=== PATIENT | female | born 1990 | race Caucasian/White ===

== ENCOUNTER → 2020-03-14 | Outpatient (CLI) | payer OTHER ==
--- NOTE | 2020-03-15 09:01 | US ---
EXAMINATION TYPE: Ultrasound OB <= 14 week fetus DATE OF EXAM: 03/14/2020 4:28 PM COMPARISON: NONE CLINICAL HISTORY: 29-year-old female Z36 CONFIRM DATES. EXAM PERFORMED: Transabdominal (TA) FINDINGS: EXAM MEASUREMENTS: GESTATIONAL AGE / DATING Physician Established: Not yet established Dates by LMP: LMP unknown Dates by First Scan: No previous this is first scan Dates by Current Scan for: (9 weeks/5 days) EDC: 10/12/2020 MATERNAL ANATOMY Uterus: 10.7 x 6.1 x 6.0 cm Right Ovary: 3.5 x 3.4 x 1.7 cm Left Ovary: 2.6 x 1.9 x 2.7 cm Post CDS / Adnexa: wnl Presence of free fluid: wnl Presence of corpus luteal cyst: Yes left Presence of subchorionic bleed: no GESTATION / SURVEY CRL: 27.7 mm (9 weeks/5 days) Yolk Sac (normal less than 6mm): 4 mm Heart Rate: 160 bpm Rhythm: Normal IUP: Viable IUP Beta HcG (if available): Not available at this time IMPRESSION: 1. Single live intrauterine with gestational age of 9 weeks 5 days by LMP. 2. A corpus luteum on the left. 3. Complete survey recommended at 18-20 weeks.
== END | disposition home or self-care (01) ==
LOC: RADUSWWP 16:07
PROVIDERS: ATTEND Obstetrics & Gynecology
DX: Z36.9 Encounter for antenatal screening, unspecified (principal); Z3A.09 9 weeks gestation of pregnancy
CPT/HCPCS: 76801

== ENCOUNTER → 2020-03-29 | Outpatient (CLI) | payer OTHER ==
[2020-03-29 11:52] LABS: HCT 34.2 % (34.0-46.0); HGB 11.2 gm/dL (11.4-16.0); MCH 26.5 pg (25.0-35.0); MCHC 32.6 g/dL (31.0-37.0); MCV 81.2 fL (80.0-100.0); Mean Platelet Volume 7.1; Platelet Count 326 k/uL (150-450); RBC 4.21 m/uL (3.80-5.40); RDW 13.7 % (11.5-15.5); WBC 9.8 k/uL (3.8-10.6)
[2020-03-29 15:15] LABS: African American GFR (CKD) 140.8 (60.0-200.0); Non-African American GFR(CKD) 121.5 (60.0-200.0)
[2020-03-29 15:49] LABS: Hepatitis B Surface Antigen Non-Reactive (Non-Reactive)
== END | disposition home or self-care (01) ==
LOC: LABWHC1 10:41
PROVIDERS: ATTEND Obstetrics & Gynecology
DX: Z34.81 Encounter for supervision of other normal pregnancy, first trimester (principal)
CPT/HCPCS: 36415; 82565; 82947; 85027; 86762; 86777; 86778; 86780; 86850; 86900; 86901; 87340

== ENCOUNTER → 2020-06-20 | Outpatient (CLI) | payer OTHER | END | disposition home or self-care (01) | LOC: LABWHC1 15:01 | PROVIDERS: ATTEND Family Medicine | DX: Z03.818 Encounter for observation for suspected exposure to other biological agents ruled out (principal) | CPT/HCPCS: U0003; C9803 ==

== ENCOUNTER 2020-10-01 06:00 | Inpatient (IN) | payer OTHER ==
[2020-10-01] MEDS ORDERED: LIDOCAINE 0.5% (PF) 5 MG/ML (50 ML SDV) SQ PRN (06:34)
[2020-10-01] MEDS ORDERED: TERBUTALINE 1 MG/ML VIAL SQ PRN (06:34)
[2020-10-01] MEDS ORDERED: CARBOPROST TROMETHAMINE 250 MCG/ML 1 ML AMP IM PRN (06:34)
[2020-10-01] MEDS ORDERED: METHYLERGONOVINE 0.2 MG/ML 1 ML AMP IM PRN (06:34)
[2020-10-01] MEDS ORDERED: OXYTOCIN 10 UNIT/ML 1 ML VIAL IM PRN (06:34)
[2020-10-01] MEDS ORDERED: OXYTOCIN 30 UNITS/500 ML NS 30 UNIT in SALINE 1 500ML.BAG IV SCH ×2 (06:45→13:45)
[2020-10-01] MEDS: LACTATED RINGERS 1,000 ML IV SCH ×2 (07:02→10:32)
[2020-10-01 07:22] LABS: Basophils % (A) 0 %; Eosinophils # (A) 0.1 k/uL (0-0.7); Eosinophils % (A) 1 %; HCT 34.4 % (34.0-46.0); HGB 11.5 gm/dL (11.4-16.0); Lymphocytes # (A) 2.3 k/uL (1.0-4.8); Lymphocytes % (A) 20 %; MCH 25.6 pg (25.0-35.0); MCHC 33.5 g/dL (31.0-37.0); MCV 76.4 fL (80.0-100.0); Microcytosis Slight; Monocytes # (A) 0.5 k/uL (0-1.0); Monocytes % (A) 4 %; Neutrophils # (A) 8.9 k/uL (1.3-7.7); Neutrophils % (A) 75 %; Platelet Count 367 k/uL (150-450); RDW 15.6 % (11.5-15.5); WBC 11.9 k/uL (3.8-10.6)
[2020-10-01] MEDS ORDERED: fentaNYL (PF) 50 MCG/ML 5 ML AMP ONE (09:59)
[2020-10-01] MEDS ORDERED: ROPIVACAINE 5MG/ML 20ML VIAL ONE (09:59)
[2020-10-01] MEDS ORDERED: ePHEDrine SULFATE/0.9% NACL/PF 50 MG/5 ML SYRINGE IV ONE (09:59)
[2020-10-01] MEDS ORDERED: SODIUM CHLORIDE 0.9% 100 ML BAG ONE (09:59)
[2020-10-01] MEDS ORDERED: diphenhydrAMINE 50 MG/ML 1 ML VIAL IVP PRN ×2 (13:41)
[2020-10-01] MEDS ORDERED: diphenhydrAMINE 25 MG CAP PO PRN (13:41)
[2020-10-01] MEDS ORDERED: diphenhydrAMINE 50 MG CAP PO PRN (13:41)
[2020-10-01] MEDS ORDERED: HYDROCORTISONE 2.5% RECTAL CREAM 30 GM TUBE RECTAL PRN (13:41)
[2020-10-01] MEDS ORDERED: ACETAMINOPHEN TAB 325 MG TAB PO PRN (13:41)
[2020-10-01] MEDS ORDERED: BENZOCAINE/MENTHOL SPRAY 1 GM/SPRAY AEROSOL TOPICAL PRN (13:41)
[2020-10-01] MEDS ORDERED: LANOLIN CREAM 5 GM TUBE TOPICAL PRN (13:41)
[2020-10-01] MEDS ORDERED: SIMETHICONE 80 MG CHEWABLE PO PRN (13:41)
[2020-10-01] MEDS ORDERED: ZOLPIDEM 5 MG TAB PO PRN (13:41)
[2020-10-01] MEDS: IBUPROFEN 600 MG TAB PO PRN ×2 (15:35→22:06)
--- NOTE | 2020-10-01 17:06 | P.HPOB ---
History of Present Illness H&P Date: 10/01/20 Chief Complaint: Induction of labor, gestational hypertension 30-year-old presents at 38 weeks and 4 days for induction of labor. Her blood pressure has been elevated a few times in my office, second time yesterday. She was diagnosed with a gestational hypertension and scheduled for induction. Her cervix is 3cm dilated, 70% effaced, and 0 station. She is rick irregularly. heart tones 135 with moderate variability and reactive. Review of Systems All systems: negative Constitutional: Denies chills, Denies fever Eyes: denies blurred vision, denies pain Ears, nose, mouth and throat: Denies headache, Denies sore throat Cardiovascular: Denies chest pain, Denies shortness of breath Respiratory: Denies cough Gastrointestinal: Denies abdominal pain, Denies diarrhea, Denies nausea, Denies vomiting Genitourinary: Denies dysuria, Denies hematuria Musculoskeletal: Denies myalgias Integumentary: Denies pruritus, Denies rash Neurological: Denies numbness, Denies weakness Psychiatric: Denies anxiety, Denies depression Endocrine: Denies fatigue, Denies weight change Past Medical History Past Medical History: No Reported History Additional Past Medical History / Comment(s): Obstetric history: First was a vaginal delivery. This is her second and she has had care with me since 10 weeks. A neg, abs neg, Rub nonimmune, RPR NR, Hep B neg, normal anatomy US. She had a rhogam injection at 28 weeks. GBS neg. she was diagnosed with gestational hypertension. History of Any Multi-Drug Resistant Organisms: None Reported Past Surgical History: Cholecystectomy Additional Past Surgical History / Comment(s): cholecystectomy 2012 Past Anesthesia/Blood Transfusion Reactions: No Reported Reaction Past Psychological History: Depression Smoking Status: Current every day smoker Past Alcohol Use History: None Reported Past Drug Use History: None Reported - Past Family History Father Family Medical History: Cancer Mother Family Medical History: Cancer Medications and Allergies Home Medications Medication Instructions Recorded Confirmed Type Citalopram Hydrobromide 1 tab PO DAILY 10/01/20 10/01/20 History [Citalopram HBr] Pnv No.95/Ferrous Fum/Folic AC 1 tab PO DAILY 10/01/20 10/01/20 History [ Multivitamin Tablet] Allergies Allergy/AdvReac Type Severity Reaction Status Date / Time tramadol HCl [From [facility]] Allergy Anaphylaxis Verified 09/07/14 06:23 Exam Osteopathic Statement: *. No significant issues noted on an osteopathic structural exam other than those noted in the History and Physical/Consult. Vital Signs Temp Pulse Resp BP Pulse Ox 10/01/20 16:00 96.9 F L 55 L 16 131/62 10/01/20 15:14 60 16 116/62 10/01/20 14:44 65 16 121/64 10/01/20 14:14 55 L 16 129/68 10/01/20 13:59 66 16 129/63 10/01/20 13:44 62 16 135/63 10/01/20 13:23 80 16 133/69 10/01/20 13:14 84 16 132/66 10/01/20 06:30 97.3 F L 83 16 128/76 99 Intake and Output 10/01/20 10/01/20 10/01/20 06:59 14:59 22:59 Intake Total 400 Balance 400 Intake: Oral 400 Other: Weight 107.048 kg Heart: Regular rate and rhythm Lungs: Clear to auscultation bilaterally Abdomen: Soft, nontender Extremities: Negative Homans sign Results Result Diagrams: 10/01/20 07:00 Abnormal Lab Results - Last 24 Hours (Table) 10/01/20 Range/Units 07:00 WBC 11.9 H (3.8-10.6) k/uL MCV 76.4 L (80.0-100.0) fL RDW 15.6 H (11.5-15.5) % Neutrophils # 8.9 H (1.3-7.7) k/uL Assessment and Plan (1) Encounter for induction of labor Current Visit: Yes Status: Acute Code(s): Z34.90 - ENCNTR FOR SUPRVSN OF NORMAL , UNSP, UNSP TRIMESTER SNOMED Code(s): 849181824 (2) Gestational hypertension Current Visit: Yes Status: Acute Code(s): O13.9 - GESTATIONAL HTN W/O SIGNIFICANT PROTEINURIA, UNSP TRIMESTER SNOMED Code(s): 543188137 Plan: 1. Admit to family place 2. Induction of labor with amniotomy and Pitocin 3. Anticipate normal vaginal delivery
--- NOTE | 2020-10-01 17:07 | P.PROBDLV ---
Vaginal Delivery Note - . Vaginal Delivery Note: 30-year-old presents at 38 weeks and 4 days for induction of labor. Her blood pressure has been elevated a few times in my office, second time yesterday. She was diagnosed with a gestational hypertension and scheduled for induction. Her cervix is 3cm dilated, 70% effaced, and 0 station. She is rick irregularly. heart tones 135 with moderate variability and reactive. Pitocin was started. Amniotomy performed at 8:20 AM and clear fluid noted. When she was uncomfortable she did get an epidural. Her cervix was completely dilated at 12:40 PM. She pushed, and a viable female over intact perineum under epidural anesthesia at 12:52 PM. Head delivered OA, nuchal cord 1 easily reduced, anterior shoulder delivered gentle guidance. Posterior shoulder and rest of body. Nose and mouth bulb suctioned, cord clamped and cut, placed on mother's abdomen. Apgars 8, 9, weight 6 pounds 2.8 ounces. Placenta delivered spontaneously, intact with three-vessel cord at 12:54 PM. Vagina, cervix, perineum inspected. Her surgery midline laceration was repaired with 0 Vicryl. Estimated blood loss 150 mL. Mother and baby in stable condition.
[2020-10-01] MEDS: SENNOSIDES-DOCUSATE SODIUM 1 EACH TAB PO SCH ×2 (20:59→22:05)
[2020-10-02] MEDS: SENNOSIDES-DOCUSATE SODIUM 1 EACH TAB PO SCH (07:53)
[2020-10-02] MEDS: IBUPROFEN 600 MG TAB PO PRN (07:54)
[2020-10-02 07:58] LABS: Basophils # (A) 0.1 k/uL (0-0.2); Basophils % (A) 0 %; Eosinophils # (A) 0.2 k/uL (0-0.7); Eosinophils % (A) 2 %; HCT 31.4 % (34.0-46.0); HGB 10.7 gm/dL (11.4-16.0); Lymphocytes # (A) 2.8 k/uL (1.0-4.8); Lymphocytes % (A) 26 %; MCH 26.4 pg (25.0-35.0); MCHC 34.1 g/dL (31.0-37.0); MCV 77.3 fL (80.0-100.0); Mean Platelet Volume 7.1; Microcytosis Slight; Monocytes # (A) 0.5 k/uL (0-1.0); Monocytes % (A) 4 %; Neutrophils # (A) 7.3 k/uL (1.3-7.7); Neutrophils % (A) 67 %; Platelet Count 298 k/uL (150-450); RBC 4.06 m/uL (3.80-5.40); RDW 15.5 % (11.5-15.5)
[2020-10-02 08:00] VITALS: RESP 20
[2020-10-02] MEDS ORDERED: buPROPion 75 MG TAB PO SCH (09:15)
--- NOTE | 2020-10-02 12:38 | P.DS ---
Providers Date of admission: 10/01/20 06:00 Expected date of discharge: 10/02/20 Attending physician: Erika Mancini Primary care physician: Stated None - Discharge Diagnosis(es) (1) Encounter for induction of labor Current Visit: Yes Status: Resolved (2) Gestational hypertension Current Visit: Yes Status: Resolved (3) Normal vaginal delivery Current Visit: No Status: Acute Hospital Course: Patient presented for induction of labor due to gestational hypertension. She underwent a normal vaginal delivery. course was uncomplicated. Denies headache, nausea, vomiting, chest pain, shortness of breath or any calf pain. She'll be discharged home day #1 in stable condition to follow-up with me in 6 weeks. Plan - Discharge Summary New Discharge Prescriptions: New Ibuprofen [Motrin] 600 mg PO Q6HR PRN #30 tab PRN Reason: Mild Pain Or Fever >= 100.5 No Action Pnv No.95/Ferrous Fum/Folic AC [ Multivitamin Tablet] 1 tab PO DAILY Citalopram Hydrobromide [Citalopram HBr] 1 tab PO DAILY Discharge Medication List Citalopram Hydrobromide [Citalopram HBr] 1 tab PO DAILY 10/01/20 [History] Pnv No.95/Ferrous Fum/Folic AC [ Multivitamin Tablet] 1 tab PO DAILY 10/01/20 [History] Ibuprofen [Motrin] 600 mg PO Q6HR PRN #30 tab 10/02/20 [Rx] Follow up Appointment(s)/Referral(s): Erika Mancini DO [Doctor of Osteopathic Medicine] - 6 Weeks Discharge Disposition: HOME SELF-CARE
[2020-10-02 13:50] VITALS: BP 148/77; PULSE 67; TEMP 98.1
== END 2020-10-02 13:35 | disposition home or self-care (01) | DRG 807 ==
LOC: 4FBP 06:00
PROVIDERS: ADMIT Obstetrics & Gynecology; ATTEND Obstetrics & Gynecology
PROC: 3E033VJ Introduction of Other Hormone into Peripheral Vein, Percutaneous Approach (ICD-10-PCS; principal; 2020-10-01)
PROC: 00HU33Z Insertion of Infusion Device into Spinal Canal, Percutaneous Approach (ICD-10-PCS; principal; 2020-10-01)
PROC: 10907ZC Drainage of Amniotic Fluid, Therapeutic from Products of Conception, Via Natural or Artificial Opening (ICD-10-PCS; principal; 2020-10-01)
PROC: 10E0XZZ Delivery of Products of Conception, External Approach (ICD-10-PCS; principal; 2020-10-01)
PROC: 0HQ9XZZ Repair Perineum Skin, External Approach (ICD-10-PCS; principal; 2020-10-01)
PROC: 3E0R3BZ Introduction of Anesthetic Agent into Spinal Canal, Percutaneous Approach (ICD-10-PCS; principal; 2020-10-01)
DX: O13.4 Gestational [pregnancy-induced] hypertension without significant proteinuria, complicating childbirth (principal); Z37.0 Single live birth; O99.344 Other mental disorders complicating childbirth; F32.9 Major depressive disorder, single episode, unspecified; O69.81X0 Labor and delivery complicated by cord around neck, without compression, not applicable or unspecified; O70.0 First degree perineal laceration during delivery; Z3A.38 38 weeks gestation of pregnancy; O99.334 Smoking (tobacco) complicating childbirth; F17.200 Nicotine dependence, unspecified, uncomplicated; Z79.899 Other long term (current) drug therapy; Z90.49 Acquired absence of other specified parts of digestive tract; Z87.19 Personal history of other diseases of the digestive system; Z98.890 Other specified postprocedural states
CPT/HCPCS: 85025; 86850; 86870; 86880; 86900; 86901; 88307